=== PATIENT | male | born 1960 | race Caucasian/White ===

== ENCOUNTER 2016-04-18 07:45 | Inpatient (IN) | payer BC ==
[~2016-04-18] VITALS: Ht 172.7 cm; Wt 71.2 kg
[~2016-04-18 07:45] MED LIST: CIALIS2.5 MG PO; FERROUS SULFAT325 MG PO; FISH OIL 1,0001 EAC7 PO; LISINOPRIL10 MG PO; NABUMETONE500 MG PO; PRIMATENE ASTH1 EACH PO; PROAIR HFA8.5 GM IH; TYLENOL ARTHRI650 MG PO
[2016-04-18 12:19] LABS: HEMATOCRIT 40.5 % (38.0-50.0); MCH 32.2 PG (29.0-34.0); MCHC 33.8 G/DL (30.0-36.0); MCV 95.3 FL (86-99); MEAN PLAT.VOLUME 10.1 uM^3 (9.0-12.4); PLATELET COUNT 399 K/uL (156-360); RBC DIS.WIDTH-CV 12.1 % (11.8-14.6); RBC DIS.WIDTH-SD 41.7 % (39-53); RED BLOOD COUNT 4.25 M/uL (4.00-5.50); WHITE BLOOD COUNT 7.4 K/uL (4.1-10.2)
[2016-04-18 12:28] VITALS: BP 158/76
[2016-04-18 12:35] LABS: INTER. NORMALIZED RATIO 0.9; PROTHROMBIN TIME 9.5 (9.2-11.2); PTT 26.2 (25-32)
[2016-04-18 13:14] LABS: METH RESISTANT S AUREUS PCR NEGATIVE (NEGATIVE); PROBE CHECK PASS; SPECIMEN PROCESSING CONTROL PASS
[2016-04-18 17:27] LABS: HEMATOCRIT 35.6 % (38.0-50.0); MCHC 33.1 G/DL (30.0-36.0); MCV 96.5 FL (86-99); MEAN PLAT.VOLUME 9.4 uM^3 (9.0-12.4); PLATELET COUNT 354 K/uL (156-360); RBC DIS.WIDTH-CV 12.1 % (11.8-14.6); RBC DIS.WIDTH-SD 42.4 % (39-53); RED BLOOD COUNT 3.69 M/uL (4.00-5.50)
[2016-04-18 17:28] LABS: WHITE BLOOD COUNT 10.2 K/uL (4.1-10.2)
[2016-04-18 18:14] VITALS: BP 125/71
[2016-04-18 19:56] VITALS: BP 129/69
[2016-04-18 23:56] VITALS: BP 170/75
[2016-04-19] VITALS (7 sets, daily range): BP systolic 97–170; BP diastolic 52–77
[2016-04-19 05:17] LABS: HEMATOCRIT 30.6 % (38.0-50.0); MCV 94.7 FL (86-99)
[2016-04-19 05:43] LABS: ANION GAP 8 MEQ/L (2-14); CHLORIDE 100 MEQ/L (99-109); GFR ESTIMATE (CALCULATED) > 59 mL/min/; GLUCOSE 141 mg/dL (70-99); POTASSIUM 4.2 MEQ/L (3.7-5.4); SAMPLE HEMOLYSIS CHECK 0; SAMPLE ICTERIC CHECK 0; SAMPLE LIPEMIA CHECK 0; SODIUM 133 MEQ/L (136-147); UREA NITROGEN (BUN) 15 mg/dL (9-23)
[2016-04-20 03:45] VITALS: BP 112/58
[2016-04-20 04:40] LABS: HEMATOCRIT 28.3 % (38.0-50.0); MCV 94.6 FL (86-99)
[2016-04-20 04:49] LABS: CHLORIDE 104 mEq/L (99-109); POTASSIUM 4.3 mEq/L (3.7-5.4)
[2016-04-20 04:50] LABS: SODIUM 134 mEq/L (136-147)
[2016-04-20 04:51] LABS: GLUCOSE 118 mg/dL (70-99)
[2016-04-20 04:53] LABS: ANION GAP 9 MEQ/L (2-14)
[2016-04-20 04:55] LABS: GFR ESTIMATE (CALCULATED) 47 mL/min/
[2016-04-20 04:56] LABS: UREA NITROGEN (BUN) 18 mg/dL (9-23)
[2016-04-20 08:26] VITALS: BP 132/60
[2016-04-20] MEDS ORDERED: ENDOCET 5-3251 EACH PO (08:38)
[2016-04-20] MEDS ORDERED: SENNA PLUS TAB1 EACH PO (08:38)
[2016-04-20] MEDS ORDERED: LOVENOX40 MG/0.4 SC (08:42)
[2016-04-20 11:41] VITALS: BP 98/52
[2016-04-20 11:44] VITALS: BP 98/52
[2016-04-20 14:54] LABS: ANION GAP 15 MEQ/L (2-14); CHLORIDE 102 MEQ/L (99-109); GFR ESTIMATE (CALCULATED) 41 mL/min/; GLUCOSE 92 mg/dL (70-99); POTASSIUM 4.8 MEQ/L (3.7-5.4); SAMPLE HEMOLYSIS CHECK 1; SAMPLE ICTERIC CHECK 0; SAMPLE LIPEMIA CHECK 0; SODIUM 133 MEQ/L (136-147); UREA NITROGEN (BUN) 18 mg/dL (9-23)
[2016-04-20 15:37] VITALS: BP 106/51
== END 2016-04-20 16:00 | disposition home health service (06) | DRG 470 ==
LOC: 2SOUTH 07:45 → 3WEST 18:05
PROVIDERS: Orthopaedic Surgery; Physician Assistant
PROC: 0SR902A Replacement of Right Hip Joint with Metal on Polyethylene Synthetic Substitute, Uncemented, Open Approach (ICD-10-PCS; principal; 2016-04-18)
DX: M16.11 Unilateral primary osteoarthritis, right hip (principal); E87.1 Hypo-osmolality and hyponatremia; G89.29 Other chronic pain; M54.5 Low back pain; I10 Essential (primary) hypertension; J45.909 Unspecified asthma, uncomplicated
CPT/HCPCS: 73501; 80048; 80048 91; 85014; 85018; 85027; 85610; 85730; 87641; 97530 GP; 99202; J0690; J1170; J1650; J3010; J7050

== ENCOUNTER → 2017-01-04 | Outpatient (CLI) | payer BC ==
[~2017-01-04] MED LIST changes: +ENDOCET 5-3251 EACH PO; +LOVENOX40 MG/0.4 SC; +SENNA PLUS TAB1 EACH PO
== END | disposition home or self-care (01) ==
LOC: RES 13:00
DX: J45.909 Unspecified asthma, uncomplicated (principal)
CPT/HCPCS: 94060; 94726; 94729